=== PATIENT | female | born 1975 | race Caucasian/White ===

== ENCOUNTER 2021-12-08 16:21 | Inpatient (IN) | payer OTHER ==
[~2021-12-08] VITALS: Ht 167.6 cm; Wt 52.6 kg
[~2021-12-08 16:21] MED LIST: KEFLEX500 MG PO
[2021-12-08 17:13] LABS: HEMOGLOBIN 12.1 gm/dl (12.3-15.3); RED BLOOD COUNT 4.46 M/UL (4.00-5.10); WHITE BLOOD COUNT 3.7 K/UL (4.5-11.0)
[2021-12-08 17:34] LABS: BUN/CREATININE RATIO 11 (0-10)
[2021-12-09 02:24] LABS: RED BLOOD COUNT 4.04 M/UL (4.00-5.10); WHITE BLOOD COUNT 3.9 K/UL (4.5-11.0)
[2021-12-09 03:30] LABS: BUN/CREATININE RATIO 10 (0-10)
[2021-12-09] MEDS ORDERED: ACETAMINOPHEN500 MG PO (10:39)
[2021-12-09] MEDS ORDERED: BUSPIRONE HCL5 MG PO (10:39)
[2021-12-09] MEDS ORDERED: ASPIRIN EC81 MG PO (10:39)
[2021-12-09] MEDS ORDERED: HYDROXYZINE HCL25 MG PO (10:40)
[2021-12-09] MEDS ORDERED: LEVETIRACETAM500 MG PO (10:40)
[2021-12-09] MEDS ORDERED: VITAMIN D21250 MCG PO (10:40)
[2021-12-09] MEDS ORDERED: METHOCARBAMOL500 MG PO (10:41)
[2021-12-09] MEDS ORDERED: LITHIUM CARBON300 M1 PO (10:41)
[2021-12-09] MEDS ORDERED: VIVITROL380 MG IM (10:42)
[2021-12-09] MEDS ORDERED: RISPERDAL 0.20.25 MG PO (10:42)
[2021-12-09] MEDS ORDERED: RISPERDAL0.5 MG PO (10:43)
[2021-12-09] MEDS ORDERED: ONDANSETRON ODT4 MG PO (10:43)
[2021-12-09] MEDS ORDERED: VOLTAREN ARTHRI20 GM TOP (10:43)
[2021-12-09] MEDS ORDERED: DOCUSATE SODIU100 MG PO (10:44)
[2021-12-09] MEDS ORDERED: PROAIR HFA8.5 GM INH (10:44)
== END 2021-12-10 15:43 | disposition home or self-care (01) | DRG 309 ==
LOC: ER1 16:21 → PROG CARE 18:26 → CDU 18:26 → PROG CARE 18:34
PROVIDERS: Emergency Medicine; ADMIT Internal Medicine
PROC: B24BZZZ Ultrasonography of Heart with Aorta (ICD-10-PCS; principal; 2021-12-09)
DX: I49.5 Sick sinus syndrome (principal); F11.20 Opioid dependence, uncomplicated; Z20.822 Contact with and (suspected) exposure to COVID-19; F19.10 Other psychoactive substance abuse, uncomplicated; F31.9 Bipolar disorder, unspecified; I95.9 Hypotension, unspecified; M54.50 Low back pain, unspecified; B19.20 Unspecified viral hepatitis C without hepatic coma; G89.29 Other chronic pain; H54.8 Legal blindness, as defined in USA; G40.909 Epilepsy, unspecified, not intractable, without status epilepticus; F17.210 Nicotine dependence, cigarettes, uncomplicated; I27.20 Pulmonary hypertension, unspecified; I08.1 Rheumatic disorders of both mitral and tricuspid valves; Z95.0 Presence of cardiac pacemaker; Z79.82 Long term (current) use of aspirin; Z90.710 Acquired absence of both cervix and uterus; Z98.891 History of uterine scar from previous surgery; Z98.890 Other specified postprocedural states; Z88.1 Allergy status to other antibiotic agents; Z98.51 Tubal ligation status
CPT/HCPCS: ECHO; 36415; 71045; 80048; 80053; 80178; 80307; 81001; 82550; 82553; 83540; 83550; 83605; 83735; 83880; 84100; 84439; 84443; 84484; 84703; 85025; 85027; 87040; 87086; 93005; 93270; 93306; 94760; 96374; 99285; J0461; J1650; J1885; J2270; J7030; U0002